=== PATIENT | male | born 1950 | race Caucasian/White ===

== ENCOUNTER → 2024-09-01 07:19 | Outpatient (REF) | payer OTHER, SELFPAY | LOC: HWRAD 07:19 | PROVIDERS: ATTENDING PHYSICIAN Student in an Organized Health Care Education/Training Program | DX: R10.9 Unspecified abdominal pain (principal) | CPT/HCPCS: 76705 ==

== ENCOUNTER 2024-09-05 22:18 | Emergency (ER) | payer OTHER, SELFPAY ==
[2024-09-05 22:21] VITALS: BP 177/102
--- NOTE | 2024-09-05 22:59 | ED.GENMED ---
History of Present Illness
<Maribel Pelaez PA-C - Last Filed: 09/06/24 00:39>
General
Chief Complaint: Skin Problem
Source: patient
Exam Limitations: none
Time Seen by Provider: 09/05/24 22:57
Nursing documentation reviewed up to this point in time: agreed with
History of Present Illness
History of Present Illness:
74-year-old male with a past medical history of hyperlipidemia, hypertension, presents emergency department today with concerns of a rash to his left side of the abdomen for the past few hours. Patient reports that this all started around 2 weeks
ago when he started to develop pain in his left upper abdomen/rib area. Patient does not recall any inciting injury to this pain however he does note that he does yard work in the yard multiple times per week. He reports that he notices this pain
when he presses in the area or when he moves but at rest he is pain-free. He saw his primary care provider who was concerned about an issue with the spleen and they got an ultrasound abdomen which was negative. He denies a burning sensation to the
pain, he denies any paresthesias. Around 5 hours prior to arrival, he started to develop a red warm rash with 2 large blisters over the area that he has this pain. He has no history of shingles. He denies any recent new medications or any new
antibiotics. He denies any fevers or chills, nausea or vomiting. He denies any allergies. He denies any new topical medications or products. He reports that he did have the ultrasound 4 days ago and questions allergy to the ultrasound really
however the rash started days later. 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 The rash is not painful and not pruritic.
Patient does note that for the pain, he did apply ice directly to the area and he did not use any overlying towel or cloth to cover the ice. He denies applying heat to the area
Past History
<Maribel Pelaez PA-C - Last Filed: 09/06/24 00:39>
Past History
ED Past Medical History: HTN and Hypercholesterolemia
ED Past Surgical History: Appendectomy and Other (brain surgery)
Social History
Personal:
Living: with family
Employment: Employed
Review of Systems
<Maribel Pelaez PA-C - Last Filed: 09/06/24 00:39>
Review of Systems
All Other Systems: ROS reviewed and negative except as documented in HPI and ROS
Phy Exam
<Maribel Pelaez PA-C - Last Filed: 09/06/24 00:39>
Physical Exam
Physical Exam:
General: Patient is well appearing and in no acute distress; non-toxic
Skin: 7 cm by 4 cm erythematous rash with 2 large blisters with no tenderness to palpation; negative nikolsky's sign
Head: Normocephalic, atraumatic
Eyes: Sclera non-icteric. EOMs intact.
Cardiac: Regular rate and rhythm, no murmurs
Peripheral Vascular: No lower extremity swelling or edema
Pulm: Normal respiratory effort
Abdomen: No abdominal tenderness to palpation
Musculoskeletal: Tenderness to palpation over left lower ribs, no crepitus
Neuro: CN II-XII intact, no focal neurologic deficits.
Psychiatric: Appropriate mood and affect.
Course
<Maribel Pelaez PA-C - Last Filed: 09/06/24 00:39>
Vital Signs
Initial and Last Documented VS:
Initial Vital Signs
Temp Pulse Resp BP Pulse Ox
98.8 F 79 14 177/102 96
09/05/24 22:21 09/05/24 22:21 09/05/24 22:21 09/05/24 22:21 09/05/24 22:21
Last Documented Vital Signs
Temp Pulse Resp BP Pulse Ox
98.8 F 79 14 177/102 96
09/05/24 22:21 09/05/24 22:21 09/05/24 22:21 09/05/24 22:21 09/05/24 22:21
<Dayan Martin DO - Last Filed: 09/06/24 06:48>
Vital Signs
Initial and Last Documented VS:
Initial Vital Signs
Temp Pulse Resp BP Pulse Ox
98.8 F 79 14 177/102 96
09/05/24 22:21 09/05/24 22:21 09/05/24 22:21 09/05/24 22:21 09/05/24 22:21
Last Documented Vital Signs
Temp Pulse Resp BP Pulse Ox
98.8 F 79 14 177/102 96
09/05/24 22:21 09/05/24 22:21 09/05/24 22:21 09/05/24 22:21 09/05/24 22:21
<Maribel Pelaez PA-C - Last Filed: 09/06/24 00:39>
MDM/Problems Addressed
Differential Diagnosis Includes:
contact dermatitis, ice injury, thermal burn, cellulitis, impetigo, shingles
MDM/Problems Addressed:
74-year-old male with a past medical history of hyperlipidemia, hypertension, presents emergency department today with concerns of a rash to his left side of the abdomen for the past few hours. This rash was preceded by pain in the area for 2-3
weeks proceeding the rash. He denies paresthesias in the area. He reports that he only feels the pain with movement. For the pain, he applied ice directly to the area and developed the rash after this. Doubt VSV---no dermatomal distribution, no
collection of small vesicles. Doubt SJS/bollous pemphigoid considering localization of rash and negative nikolsky's sign/no other associated symptoms. Considering rash occurs over area directly in contact with ice, suspect ice injury/burn especially
since patient has underlying sensory deficits in that area from prior meningitis. Discussed conservative management and return precautions. Will treat with abx ointment to cover for bacterial etiology.
Chronic conditions affecting care:
htn, hlp
<Maribel Pelaez PA-C - Last Filed: 09/06/24 00:39>
*Pulse Oximetry
Patient hypoxic: no
*Critical Care Note
Total Time (30-74mins, 75-104mins- exclusive of procedures): Not Applicable
Data Reviewed
Review of Other/Old Records Reveals: Records (Reviewed ER physician documentation from 10/13/2022, patient had bee sting in his left, was treated with Benadryl was given prescription for EpiPen and prednisone)
Source: patient and records
<Maribel Pelaez PA-C - Last Filed: 09/06/24 00:39>
Patient Management
Escalation/DeEscalation of care consider admission/obs:
case reviewed with ED attending; return precautions discussed; patient stable for discharge
ED Attending Note
<Maribel Pelaez PA-C - Last Filed: 09/06/24 00:39>
-
Portions of this chart may have been created with voice recognition software.� Occasional wrong word or��sound alike� substitutions may have occurred due to the inherent limitations of voice recognition software.
<Dayan Martin DO - Last Filed: 09/06/24 06:48>
ED Attending Note
Patient seen and examined by attending physician: Yes
I performed a history and physical exam of patient and discussed management with resident, I reviewed resident's note and agree with documented findings and plan of care.: Yes
ED Attending Note:
74-year-old gentleman presents with complaints of pinpoint left anterior costal margin pain that has been ongoing over the past at least 2 weeks or more. He underwent abdominal ultrasound 4-1/2 days ago that was reportedly unremarkable.
Tonight he noticed a red rash with 2 intact bullae left upper quadrant. He denies itch, denies pain. He has not had a fever nor chills.
Exam remarkable for well-circumscribed erythematous patch left upper quadrant with irregular borders with 2 intact bullae.
There is focal pinpoint tenderness left anterior lower costal margin. No abdominal tenderness.
He now admits that he has been applying ice to his left upper quadrant and notes that patient has had some chronic left hemisensory deficit after suffering meningitis as a child.
Left upper quadrant erythematous patch with intact bullae appears to be burn in nature and I suspect related to local ice.
Rash is not consistent with herpes zoster and as left upper quadrant pinpoint pain has been ongoing for more than 2 weeks, erythematous patch with 2 large bullae definitely not consistent with herpes zoster.
Rash is nonpruritic and does not appear to be urticarial in nature.
Recommend topical triple antibiotic ointment and avoid topical ice as well as avoid topical heat.
Prompt follow-up with PCP for recheck.
Discharge Plan
Departure
Patient Disposition: Home (Routine Discharge)
Date of Disposition: 09/05/24
Time of Disposition: 23:42
Patient with high blood pressure during this ER visit?: Yes
Condition: Good
Discharge Problem:
Rash and nonspecific skin eruption
Instructions: Skin Rash (DC), Wound Care (DC), BLOOD PRESSURE
Prescriptions:
No Action
docosahexaenoic acid-epa 1 CAP capsule
1 cap PO DAILY
prednisone 10 MG tablet
10 mg PO .TAPER Qty: 30 0RF
Rx Instructions:
Take [id number], [id number], [id number], [id number].
famotidine 40 MG tablet
40 mg PO BID Qty: 16 0RF
Rx Instructions:
Take medications for at least 3 days and then as directed by her physician.
aspirin 81 MG tablet,delayed release (DR/EC)
81 mg PO DAILY
multivitamin with folic acid [Tab-A-Orion] 1 TABLET tablet
1 tab PO DAILY
epinephrine [EpiPen 2-Art] 0.3 mg/0.3 mL auto-injector
0.3 mg IM ONCE PRN (Reason: hypersensitivity reaction) Qty: 2 0RF
prednisone 20 mg tablet
40 mg PO DAILY Qty: 6 0RF
Referrals:
Bjorn Arce MD [Family Provider, [facility]]
Activity Restrictions/Additional Instructions:
For your pain, you can take 200-400 mg ibuprofen as needed for the next 2 days every 6 hours, please take this with food. Please do not exceed this amount of time since you do take baby aspirin.
Please apply triple antibiotic ointment over the rash. You can apply the ointment 3 times daily for the next few days. You can stop the ointment if the rash starts to improve.
Please keep the bandage over the area for at least 12 hours. You do not have to keep the area covered but it can help minimize friction with clothing. Please do not apply eye or heat directly onto the skin.
PLEASE RETURN TO THE ER SHOULD YOU DEVELOP SPREAD OF THE RASH, SWELLING OF THE TONGUE OR LIPS, DIFFICULTY BREATHING, SWALLOWING, PEELING OF THE SKIN, FEVER OR CHILLS, NAUSEA AND VOMITING, INCREASING PAIN, OR ANY OTHER SIGNS OR SYMPTOMS WORRISOME TO
YOU.
Interventions
Interventions:
*Risk Screen - Suicide Last Done: 09/05/24 22:21
*General Assessment Last Done: 09/05/24 22:21
*Neglect/Abuse Screening Last Done: 09/05/24 22:21
*ED- Fall Risk Assessment Last Done: 09/05/24 23:29
*Nursing Disposition Last Done: 09/05/24 23:31
ED-Skin Assessment Last Done: 09/05/24 23:29
Discharge Date and Time
Discharge Date/Time: 09/05/24 23:43
Print Language: HUNGARIAN
== END 2024-09-05 23:43 | disposition home or self-care (01) ==
LOC: EMR 22:18
PROVIDERS: EMERGENCY PHYSICIAN Emergency Medicine; FAMILY PHYSICIAN Family Medicine
DX: R21 Rash and other nonspecific skin eruption (principal); I10 Essential (primary) hypertension; E78.00 Pure hypercholesterolemia, unspecified; Z90.49 Acquired absence of other specified parts of digestive tract
CPT/HCPCS: 99282

== ENCOUNTER → 2025-02-14 19:40 | Outpatient (REF) | payer OTHER, SELFPAY | LOC: MRI 3T 19:40 | PROVIDERS: ATTENDING PHYSICIAN Specialist; FAMILY PHYSICIAN Family Medicine | DX: R97.20 Elevated prostate specific antigen [PSA] (principal) | CPT/HCPCS: 72197; A9575 ==